=== PATIENT | female | born 1950 | race Caucasian/White ===

== ENCOUNTER 2018-01-08 10:15 | Outpatient (CLI) | payer OTHER | END 2018-01-08 10:29 | disposition home or self-care (01) | LOC: NUCLEAR 10:15 | DX: C50.412 Malignant neoplasm of upper-outer quadrant of left female breast (principal); C79.51 Secondary malignant neoplasm of bone | CPT/HCPCS: 78306; A9503 ==

== ENCOUNTER 2018-09-14 12:48 | Outpatient (CLI) | payer OTHER | END 2018-09-14 12:56 | disposition home or self-care (01) | LOC: LAB 12:48 | DX: D64.89 Other specified anemias (principal); D70.1 Agranulocytosis secondary to cancer chemotherapy; R10.10 Upper abdominal pain, unspecified ==

== ENCOUNTER 2018-09-18 12:08 | Outpatient (CLI) | payer OTHER | END 2018-09-18 12:20 | disposition home or self-care (01) | LOC: TOM 12:08 | DX: C50.412 Malignant neoplasm of upper-outer quadrant of left female breast (principal); J91.0 Malignant pleural effusion | CPT/HCPCS: 71260; Q9965 ==

== ENCOUNTER 2019-03-31 14:35 | Inpatient (IN) | payer OTHER ==
[~2019-03-31] VITALS: Ht 157.5 cm; Wt 72.6 kg
[2019-03-31] MEDS ORDERED: FASLODEX250 MG/5 M IM (19:53)
[2019-03-31] MEDS ORDERED: XGEVA120 MG/1.7 SUBCUTANEO (19:54)
[2019-04-03] MEDS ORDERED: RESTORIL15 MG PO (11:10)
[2019-04-03] MEDS ORDERED: PROTEINEX-18 LI30 ML PO (11:11)
[2019-04-03] MEDS ORDERED: PEPCID20 MG PO (11:12)
[2019-04-03] MEDS ORDERED: REGLAN5 MG/5 ML PO (11:14)
[2019-04-03] MEDS ORDERED: MAXFE CAPLET1 EACH PO (11:17)
== END 2019-04-03 13:26 | disposition home or self-care (01) | DRG 598 ==
LOC: SEC-K 14:35 → MEDJ 14:35 → SEC-K 14:38 → MEDJ 23:38
PROVIDERS: ADMIT Internal Medicine Hematology & Oncology
PROC: BB24Y0Z Computerized Tomography (CT Scan) of Bilateral Lungs using Other Contrast, Unenhanced and Enhanced (ICD-10-PCS; 2019-03-31)
PROC: BW21Y0Z Computerized Tomography (CT Scan) of Abdomen and Pelvis using Other Contrast, Unenhanced and Enhanced (ICD-10-PCS; 2019-03-31)
PROC: 30233N1 Transfusion of Nonautologous Red Blood Cells into Peripheral Vein, Percutaneous Approach (ICD-10-PCS; 2019-03-31)
PROC: 0W9G30Z Drainage of Peritoneal Cavity with Drainage Device, Percutaneous Approach (ICD-10-PCS; principal; 2019-04-01)
PROC: 02HV33Z Insertion of Infusion Device into Superior Vena Cava, Percutaneous Approach (ICD-10-PCS; 2019-04-01)
DX: C50.212 Malignant neoplasm of upper-inner quadrant of left female breast (principal); C78.6 Secondary malignant neoplasm of retroperitoneum and peritoneum; R18.0 Malignant ascites; C79.51 Secondary malignant neoplasm of bone; C79.2 Secondary malignant neoplasm of skin; N39.0 Urinary tract infection, site not specified; N20.0 Calculus of kidney; K29.00 Acute gastritis without bleeding; K76.0 Fatty (change of) liver, not elsewhere classified; E88.09 Other disorders of plasma-protein metabolism, not elsewhere classified; D69.59 Other secondary thrombocytopenia; Z17.0 Estrogen receptor positive status [ER+]
CPT/HCPCS: 240

== ENCOUNTER 2019-04-11 12:40 | Inpatient (IN) | payer OTHER ==
[~2019-04-11] VITALS: Ht 160 cm; Wt 38.1 kg
[~2019-04-11 12:40] MED LIST: FASLODEX250 MG/5 M IM; MAXFE CAPLET1 EACH PO; PEPCID20 MG PO; PROTEINEX-18 LI30 ML PO; REGLAN5 MG/5 ML PO; RESTORIL15 MG PO; XGEVA120 MG/1.7 SUBCUTANEO
--- NOTE | 2019-04-11 12:46 | NUR ---
SE RECIBE PACIENTE EN AMBULANCIA REFIERE VOMITOS SE CODY S/V Y SE UBICA EN AREA DE OBSERVACION
--- NOTE | 2019-04-11 13:38 | NUR ---
PACIENTE ALERTA Y ORIENTADA EN IMELDA FABRICE ESFERAS, ES ORIENTADA SOBRE ORDENES MEDICAS, REFIERE ENTENDER. SE COLECTAN MUESTRAS DE DANTE, PACIENTE LLEGO CANALIZADA EN MANO RT CON ANGIO #22 PATENTE Y DAVID DE S/S DE FLEBITIS E INFILTRACION, SE INSERTA SONDA URINARIA DRENANDO ORINA AMARILLO INTENSO, PACIENTE CONECTADA A MONITOR CARDIACO PRESENTANDO TAQUICARDIA SINOSAL DE 125 LAT/MIN.
--- NOTE | 2019-04-11 13:40 | NUR ---
MR DARY RT REALIZA ABG Y COLOCA NON REBREATHING AL 100 %
[2019-04-12] MEDS ORDERED: LASIX20 MG PO (08:10)
== END 2019-04-14 12:14 | disposition expired | DRG 597 ==
LOC: ER 12:40 → MEDJ 14:27 → SEC-K 14:27 → MEDJ 18:33
PROVIDERS: ADMIT Internal Medicine Hematology & Oncology
PROC: 4A033R1 Measurement of Arterial Saturation, Peripheral, Percutaneous Approach (ICD-10-PCS; principal; 2019-04-11)
PROC: 4A12X4Z Monitoring of Cardiac Electrical Activity, External Approach (ICD-10-PCS; 2019-04-11)
PROC: 3E0F7GC Introduction of Other Therapeutic Substance into Respiratory Tract, Via Natural or Artificial Opening (ICD-10-PCS; 2019-04-11)
PROC: 8E0ZXY6 Isolation (ICD-10-PCS; 2019-04-11)
PROC: BB24ZZZ Computerized Tomography (CT Scan) of Bilateral Lungs (ICD-10-PCS; 2019-04-12)
PROC: 06HM33Z Insertion of Infusion Device into Right Femoral Vein, Percutaneous Approach (ICD-10-PCS; 2019-04-14)
PROC: 0BH17EZ Insertion of Endotracheal Airway into Trachea, Via Natural or Artificial Opening (ICD-10-PCS; 2019-04-14)
DX: C50.412 Malignant neoplasm of upper-outer quadrant of left female breast (principal); J96.00 Acute respiratory failure, unspecified whether with hypoxia or hypercapnia; C78.2 Secondary malignant neoplasm of pleura; C78.6 Secondary malignant neoplasm of retroperitoneum and peritoneum; C79.51 Secondary malignant neoplasm of bone; C79.2 Secondary malignant neoplasm of skin; E44.1 Mild protein-calorie malnutrition; N17.8 Other acute kidney failure; R18.0 Malignant ascites; J91.0 Malignant pleural effusion; Z17.0 Estrogen receptor positive status [ER+]; D52.0 Dietary folate deficiency anemia; E88.09 Other disorders of plasma-protein metabolism, not elsewhere classified; D69.49 Other primary thrombocytopenia; D72.828 Other elevated white blood cell count; Z66 Do not resuscitate; F43.29 Adjustment disorder with other symptoms; D50.8 Other iron deficiency anemias; K29.00 Acute gastritis without bleeding; R74.0 Nonspecific elevation of levels of transaminase and lactic acid dehydrogenase [LDH]; R70.0 Elevated erythrocyte sedimentation rate